=== PATIENT | male | born 1945 | race Caucasian/White ===

== ENCOUNTER → 2018-05-01 16:41 | Outpatient (CLI) | payer MEDICARE, SELFPAY ==
[2018-05-01 20:41] LABS: Cholesterol 135 mg/dL (140-199); HDL Cholesterol 30 mg/dL (40-60); LDL Cholesterol Calculated 65 mg/dL (<100); Triglycerides 201 mg/dL (35-150)
== END ==
PROVIDERS: Visit Provider Hospitalist
DX: I10 Essential (primary) hypertension (principal); I49.3 Ventricular premature depolarization
CPT/HCPCS: 36415; 80061

== ENCOUNTER 2020-01-05 15:45 | Emergency (ER) | payer MEDICARE, SELFPAY ==
[2020-01-05 15:56] VITALS: BP 155/88; PULSE 63; RESP 20; TEMP 36.6; O2SAT 95
--- NOTE | 2020-01-05 16:35 | ED_ITS ---
HPI - Extremity Problem <GALLITO Cornell - Last Filed: 01/05/20 18:10> General Chief complaint: Extremity Problem,Nontraumatic Stated complaint: right leg swelling below the knee Time Seen by Provider: 01/05/20 15:48 Source: patient Mode of arrival: Ambulatory Limitations: no limitations History of Present Illness HPI Narrative: The patient is a 74-year-old male nonsmoker with history of hypertension who presents with a chief complaint of a swollen right leg below his knee. He states he noticed it today, is not exactly sure how long it has been going on. States that he has some cramping, and a strained Achilles over the past few days. He has not taken anything for the pain. He denies any personal history of blood clots. Denies any recent surgeries, or flights. 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 He states that the longest he. Has immobile asa few hours he denies any chest pain shortness of breath. He denies any family history of blood clots. He denies any falls or trauma. Related Data Allergies Allergy/AdvReac Type Severity Reaction Status Date / Time No Known Drug Allergies Allergy Verified 01/05/20 15:58 Review of Systems <GALLITO Cornell - Last Filed: 01/05/20 18:10> Review of Systems Narrative: GENERAL: Denies chills, fatigue, malaise, fever, sweats. HEENT: Denies sinus pain, ear pain, sore throat, difficulty swallowing, dizziness. RESPIRATORY: Denies dyspnea, cough, wheezing, hemoptysis, sputum. CARDIOVASCULAR: Denies chest pain, palpitations, orthopnea, edema, GASTROINTESTINAL: Denies nausea, vomiting, abdominal pain, diarrhea, c onstipation, melena. : Denies dysuria, frequency, incontinence, hematuria, urinary retention. MUSCULOSKELETAL: See HPI SKIN: Denies rash, skin lesions, or other NEUROLOGIC: Denies weakness, headache, numbness, change in speech, confusion, seizures, incoordination. PSYCHIATRIC: No concerning psychosocial issues. 12 point review of systems is negative except for those stated above Patient History <GALLITO Cornell - Last Filed: 01/05/20 18:10> Social History Smoking Status: Never smoker Smoking Status: Never smoker alcohol intake frequency: 0-2 drinks per day Substance Use Type: does not use Exam <PERICO Cornell - Last Filed: 01/05/20 18:10> Narrative Exam Narrative: GENERAL: This is a well-nourished, well-developed patient, in no acute distress HEAD: Atraumatic. Normocephalic. No temporal or scalp tenderness. EYES: Pupils equal round and reactive. Extraocular motions intact. No scleral icterus. No injection or drainage. ENT: Nose without bleeding, purulent drainage or septal hematoma. Throat without erythema, tonsillar hypertrophy or exudate. Uvula midline. Airway patent. NECK: Trachea midline. No JVD or lymphadenopathy. Supple, nontender, no meningeal signs. CARDIOVASCULAR: Regular rate and rhythm RESPIRATORY: Clear to auscultation. Breath sounds equal bilaterally. No wheezes, rales, or rhonchi. No cough. No increased respiratory effort. No accessory muscle use. GASTROINTESTINAL: Abdomen soft, non-tender, nondistended. No hepato- splenomegaly, or palpable masses. No guarding. EXTREMITIES: +1 edema noted right lower leg. No edema noted left lower leg. No or erythema or ecchymosis noted. Positive pedal pulses bilaterally. BACK: Nontender without deformity or crepitance. No flank tenderness. NEURO: AOx3. SKIN: See extremity exam Initial Vital Signs Initial Vital Signs: Vital Signs Temperature 97.8 F 01/05/20 15:56 Pulse Rate 63 01/05/20 15:56 Respiratory Rate 20 01/05/20 15:56 Blood Pressure 155/88 H 01/05/20 15:56 Pulse Oximetry 95 01/05/20 15:56 <Cece Kearney DO - Last Filed: 01/05/20 18:17> Initial Vital Signs Initial Vital Signs: Vital Signs Temperature 97.8 F 01/05/20 15:56 Pulse Rate 63 01/05/20 15:56 Respiratory Rate 01/05/20 15:56 Blood Pressure 155/88 H 01/05/20 15:56 Pulse Oximetry 95 01/05/20 15:56 Scores <PERICO Cornell - Last Filed: 01/05/20 18:10> GCS Reina coma scale eye opening: Spontaneous [place] coma scale verbal response: Orientated [place] coma scale motor response: Obey commands [place] coma scale total score: 15 Course <PERICO Cornell - Last Filed: 01/05/20 18:10> Orders Ordered: ED Orders 01/05/20 17:20 US periph venous low extrem rt Stat Vital Signs Vital signs: Vital Signs - 8 hr 01/05/20 15:56 01/05/20 18:13 Temperature 97.8 F Pulse Rate 63 59 L Respiratory Rate 20 15 Blood Pressure 155/88 H 150/89 H Pulse Oximetry 95 96 <Cece Kearney DO - Last Filed: 01/05/20 18:17> Orders Ordered: ED Orders 01/05/20 17:20 US periph venous low extrem rt Stat Vital Signs Vital signs: Vital Signs - 8 hr 01/05/20 15:56 01/05/20 18:13 Temperature 97.8 F Pulse Rate 63 59 L Respiratory Rate 20 15 Blood Pressure 155/88 H 150/89 H Pulse Oximetry 95 96 MDM - Extremity (Nontraumatic) <PERICO Cornell - Last Filed: 01/05/20 18:10> Imaging Data US - DVT: Radiologist's Impression: [address] [place] [address] Ultrasound Report Signed Patient: [facility]#: [id number] : 1945cct:[id number] Age/Sex: 74 / MDate of Service: 01/05/20 Loc: ED Accession Number: [id number] Procedure: US periph venous low extrem rt Ordering Provider: Cece Fallon PROCEDURE: US PERIPH VENOUS LOW EXTREM RT INDICATIONS: PAIN,SWELLING TECHNIQUE: Real-time imaging, as well as color and pulse Doppler interrogation, were performed of the lower extremity deep veins from the inguinal ligament to the popliteal fossa. COMPARISON: None. FINDINGS: The common femoral, femoral and popliteal veins are normally compressible, and free of intraluminal thrombus. Color and pulse Doppler demonstrate normal phasic intraluminal flow. There is normal augmentation response to distal compression maneuver. An anechoic elongated structure is identified along the posterior aspect of the calf just above the level of the posterior margin of the ankle, which measures 1.9 x 4.3 x 1.1 cm. No internal vascularity is identified. Incidental note is made of a moderate-sized Vazquez's cyst within the popliteal fossa. IMPRESSION: 1. No evidence of a deep vein thrombosis of the right lower extremity. 2. Small fluid collection (likely representing hematoma) along the lower aspect of the posterior right lower leg may be related to recent injury. Please consider MRI for further evaluation to exclude the possibility of an injury to a muscle or tendon. 3. Vazquez's cyst. Dictated by: Yovani Parham M.D. on 01/05/2020 at 16:43 Approved by: Yovani Parham M.D. on 01/05/2020 at 16:[address] [facility] Narrative Medical decision making narrative: The patient is a 74-year-old male who presents with a chief complaint of right lower leg swelling. He has a have risk factors for DVT, so an ultrasound was obtained. This is negative for DVT, positive for Vazquez cyst and positive for a small fluid collection. This is likely attributed to his recent ?Achilles strain.However he has full range of motion noted of his right ankle and foot. I discussed at length rest ice compression elevation as well as [id number] pain medications as needed and able. I discussed coming back to ER for any acute concerns patient has no questions or concerns upon discharge and states understanding of return precautions as well as follow-up care. Discharge Plan Departure Patient Disposition: Home Clinical Impression: Leg pain, right Vazquez cyst Qualifiers: Laterality: right Qualified Code(s): M71.21 - Synovial cyst of popliteal space [Vazquez], right knee Discharge Date/Time: 01/05/20 18:15 Instructions: DI for Vazquez's Cyst, How To Perform RICE (Rest, Ice, Compress, Elevate), DI for Leg Pain Activity Restrictions/Additional Instructions: Thank you for trusting us with your care today. As I discussed, your ultrasound shows no evidence of a blood clot in your right lower leg. However you do have a Vazquez's cyst in her right leg. You also have a small fluid collection likely a hematoma on the back of her right leg. This could be related to your recent calf strain. Please use rest ice compression elevation as well as [id number] pain medications as needed and able I have given contact information [facility] human resource officer. They can help you obtain a primary care provider in the area.. Please come back to the emergency department for any acute concerns Referrals: [facility] [Outside]
--- NOTE | 2020-01-05 17:20 | DI.US.S_ITS ---
PROCEDURE: US PERIPH VENOUS LOW EXTREM RT INDICATIONS: PAIN,SWELLING TECHNIQUE: Real-time imaging, as well as color and pulse Doppler interrogation, were performed of the lower extremity deep veins from the inguinal ligament to the popliteal fossa. COMPARISON: None. FINDINGS: The common femoral, femoral and popliteal veins are normally compressible, and free of intraluminal thrombus. Color and pulse Doppler demonstrate normal phasic intraluminal flow. There is normal augmentation response to distal compression maneuver. An anechoic elongated structure is identified along the posterior aspect of the calf just above the level of the posterior margin of the ankle, which measures 1.9 x 4.3 x 1.1 cm. No internal vascularity is identified. Incidental note is made of a moderate-sized Vazquez's cyst within the popliteal fossa. IMPRESSION: 1. No evidence of a deep vein thrombosis of the right lower extremity. 2. Small fluid collection (likely representing hematoma) along the lower aspect of the posterior right lower leg may be related to recent injury. Please consider MRI for further evaluation to exclude the possibility of an injury to a muscle or tendon. 3. Vazquez's cyst. Dictated by: Yovani Parham M.D. on 01/05/2020 at 16:43 Approved by: Yovani Parham M.D. on 01/05/2020 at 16:44
[2020-01-05 18:13] VITALS: BP 150/89; PULSE 59; RESP 15; O2SAT 96
== END 2020-01-05 18:15 | disposition home or self-care (01) ==
PROVIDERS: Emergency Provider Nurse Practitioner Family
DX: M79.604 Pain in right leg (principal); M71.21 Synovial cyst of popliteal space [Baker], right knee; I10 Essential (primary) hypertension
CPT/HCPCS: 93971; 99281; 99283

== ENCOUNTER 2020-01-24 23:12 | Emergency (ER) | payer MEDICARE, SELFPAY ==
[2020-01-24 23:25] VITALS: BP 192/86; PULSE 59; RESP 16; TEMP 36.4; O2SAT 96; BMI 35.9
--- NOTE | 2020-01-25 00:14 | ED.MALEGU ---
HPI - Male Genitourinary General Chief complaint: Urogenital-Male Stated complaint: urinary problem, unable to urinate Time Seen by Provider: 01/24/20 23:15 Source: patient and family Mode of arrival: Ambulatory Limitations: no limitations History of Present Illness HPI Narrative: 74M nonsmoker with history of BPH presents with trouble using his catheter at home. He self caths 3-4x daily and has for years, usually without any trouble. He had done it multiple times earlier today without any difficulty but this evening felt some resistance and force the catheter in a bit. He felt some pain and then developed a small amount of bleeding and presented for evaluation. He denies any ongoing pain or bleeding. He has no fever chills. He denies any chest pain or shortness of breath. He denies nausea, vomiting or diarrhea MD Complaint: other Onset (ago): hour(s) Duration: now resolved Location: penis Quality: aching Relieving factors: none Context: trauma Associated symptoms: Reports denies other symptoms Related Data Allergies Allergy/AdvReac Type Severity Reaction Status Date / Time No Known Drug Allergies Allergy Verified 01/05/20 15:58 Review of Systems Constitutional Constitutional: Denies chills, Denies fatigue, Denies fever(s), Denies frequent falls, Denies lethargy and Denies weakness Eyes Eyes: Denies change in vision, Denies eye discharge, Denies irritation and Denies loss of vision ENT Ears, Nose, Mouth, and Throat: Denies change in voice, Denies dizziness, Denies neck pain, Denies sore throat and Denies throat swelling Cardiovascular Cardiovascular: Denies chest pain, Denies irregular heart rhythm, Denies lightheadedness, Denies palpitations, Denies dyspnea, Denies dyspnea on exertion and Denies orthopnea Respiratory Respiratory: Denies cough, Denies dyspnea, Denies dyspnea on exertion and Denies wheezing Gastrointestinal Gastrointestinal: Denies abdominal pain, Denies change in bowel habits, Denies diarrhea, Denies nausea and Denies vomiting Genitourinary Genitourinary: Denies hematuria, Denies flank pain, Denies urinary incontinence and Denies urinary urgency Comments: penile bleeding Musculoskeletal Musculoskeletal: Denies back pain, Denies muscle weakness, Denies neck pain, Denies numbness and Denies tingling Integumentary/Breasts Skin/Breast: Denies pruritus, Denies erythema, Denies rash and Denies wounds Neurologic Neurologic: Denies behavioral changes, Denies confusion, Denies dizziness, Denies frequent falls, Denies loss of vision, Denies numbness, Denies tingling and Denies weakness Psychiatric Psychiatric: Denies anxiety, Denies behavioral changes, Denies confusion, Denies depression, Denies homicidal ideation and Denies suicidal ideation Endocrine Endocrine: Denies fatigue, Denies flushing and Denies palpitations Hematologic/Lymphatic Hematologic/Lymphatic: Denies easy bruising Allergic/Immunologic Allergic/Immunologic: Denies urticaria, Denies throat swelling and Denies wheezing Patient History Social History Smoking Status: Never smoker Smoking Status: Never smoker alcohol intake frequency: 0-2 drinks per day Substance Use Type: does not use Exam Narrative Exam Narrative: GEN: AOx3 and in mild distress EYES: Pupils are equal, round, and reactive to light and accommodation. Extraoccular muscles are intact bilaterally. There is no subconjunctival hemorrhage or exudate. CHEST: Lungs are clear to auscultation bilaterally and free of wheezes, rales, or rhonchi. Heart rate is regular rhythm, there are no murmurs, clicks, rubs, or gallops. There is no chest wall tenderness. ABD: Abdomen is soft and nontender. There is no guarding or rebound. Bowel sounds are normal in all 4 quadrants. There is no mass or organomegaly. : dried blood at meatus. NO ongoing bleeding. No testicular pain or swelling. No penile pain. EXT: Full painless ROM of all extremities with no loss of sensation or strength. SKIN: Warm, pink, and dry. No erythema or rash Initial Vital Signs Initial Vital Signs: Vital Signs Temperature 97.6 F 01/24/20 23:25 Pulse Rate 59 L 01/24/20 23:25 Respiratory Rate 16 01/24/20 23:25 Blood Pressure 192/86 H 01/24/20 23:25 Pulse Oximetry 96 01/24/20 23:25 Course Course Course Narrative: patient has about 400mL on bladder scan. After my exam patient wishes to attempt catheter placement and does so without difficulty. He is given return precautions and has had questions answered to his apparent satisfaction Orders Ordered: Discontinued Medications Lidocaine HCl (Xylocaine Jelly 2%) 1 applic TOP NOW ONE Stop: 01/24/20 23:26 Last Admin: 01/25/20 00:30 Dose: Not Given Documented by: THERESA Vital Signs Vital signs: Vital Signs - 8 hr 01/24/20 23:25 01/25/20 00:28 Temperature 97.6 F Pulse Rate 59 L 80 Respiratory Rate 16 18 Blood Pressure 192/86 H 180/92 H Pulse Oximetry 96 98 Discharge Plan Departure Patient Disposition: Home Clinical Impression: Problem with urinary catheter Discharge Date/Time: 01/25/20 00:29 Instructions: How to Catheterize Yourself -- for Men Activity Restrictions/Additional Instructions: *You have been diagnosed with [catheter problem, resolved] *What to do: *Take medications as directed *Follow up with your primary care provider in 2-3 days, call for an appointment. Let them know you were seen in the Emergency Department and that we ask that you be seen in follow up *Return to ER if you should have any new, worsening or concerning symptoms
--- NOTE | 2020-01-25 00:16 | PC.NURSE ---
After DR exam,he was able to successfully self cath. as he normally does,clear yellow urine noted,no pain,no bleeding.
[2020-01-25 00:28] VITALS: BP 180/92; PULSE 80; RESP 18; O2SAT 98
== END 2020-01-25 00:29 | disposition home or self-care (01) ==
PROVIDERS: Emergency Provider Emergency Medicine
DX: T83.021A Displacement of indwelling urethral catheter, initial encounter (principal); N48.89 Other specified disorders of penis
CPT/HCPCS: 51798; 99282

== ENCOUNTER 2020-03-22 14:08 | Emergency (ER) | payer MEDICARE, SELFPAY ==
--- NOTE | 2020-03-22 14:20 | DI.RAD.S_ITS ---
PROCEDURE: XR SHOULDER LT MIN 2V INDICATIONS: Fall landing on shoulder with increased pain. TECHNIQUE: 3 views of the shoulder were acquired. COMPARISON: None. FINDINGS: Bones: No fractures or dislocations. No suspicious bony lesions. Glenohumeral joint and acromioclavicular joint degenerative change. Visualized ribs appear intact. Soft tissues: No suspicious soft tissue calcifications. IMPRESSION: Degenerative change. No evidence acute bony abnormality of the left shoulder. If clinical suspicion and/or symptoms persist, further assessment with repeat plain films, or advanced imaging (e.g., CT, MRI, or bone scan) may be helpful for further assessment. Dictated by: Mustapha Salinas M.D. on 03/22/2020 at 13:56 Approved by: Mustapha Salinas M.D. on 03/22/2020 at 13:57
[2020-03-22 14:21] VITALS: BP 171/87; PULSE 68; RESP 15; TEMP 36.8; O2SAT 97; BMI 35.9
--- NOTE | 2020-03-22 14:29 | PC.NURSE ---
pt has good radial pulse in left arm. good cap refill . denies any numbness or tingling in his fingers.
[2020-03-22] MEDS: IBUPROFEN 400 MG TABLET PO (15:48)
[2020-03-22] MEDS: ACETAMINOPHEN 325 MG TABLET 650 MG PO (15:48)
[2020-03-22] MEDS: LIDOCAINE PATCH 1 EACH ADH..PATCH TOP (15:49)
[2020-03-22 15:53] VITALS: BP 143/83; PULSE 58; RESP 18; O2SAT 98
--- NOTE | 2020-03-22 18:43 | ED.FALL ---
HPI - [facility] Last Filed: 03/22/20 18:51> General Chief Complaint: Fall Stated Complaint: Fell while rollerskating 03/21, hurt left shoulder Time Seen by Provider: 03/22/20 14:20 Source: patient Mode of arrival: Ambulatory Limitations: no limitations History of Present Illness HPI Narrative: The patient is a 74-year-old male nonsmoker with history of BPH who presents with a chief complaint of shoulder pain. He states that he fell while roller-skating yesterday, landed directly on to his left shoulder. His left shoulder was done aside he states he just landed on it. He states he did not have a FOOSH injury, did not twist his shoulder etcetera. He states he landed directly on his shoulder. He denies any previous known injuries. He states he has decreased range of motion. He took aspirin for the pain. He did not hit his head or his neck. He denies any other injuries. He states he is wearing helmet, knee guards, wrist guards etcetera. He states that he this is an isolated shoulder injury. Related Data Allergies Allergy/AdvReac Type Severity Reaction Status Date / Time No Known Drug Allergies Allergy Verified 01/05/20 15:58 Review of Systems <[facility] Last Filed: 03/22/20 18:51> Review of Systems Narrative: GENERAL: Denies chills, fatigue, malaise, fever, sweats. HEENT: Denies sinus pain, ear pain, sore throat, difficulty swallowing, dizziness. RESPIRATORY: Denies dyspnea, cough, wheezing, hemoptysis, sputum. CARDIOVASCULAR: Denies chest pain, palpitations, orthopnea, edema, GASTROINTESTINAL: Denies nausea, vomiting, abdominal pain, diarrhea, constipation, melena. : Denies dysuria, frequency, incontinence, hematuria, urinary retention. MUSCULOSKELETAL: See HPI SKIN: Denies rash, skin lesions, or other NEUROLOGIC: Denies weakness, headache, numbness, change in speech, confusion, seizures, incoordination. PSYCHIATRIC: No concerning psychosocial issues. 12 point review of systems is negative except for those stated above Patient History <[facility] Last Filed: 03/22/20 18:51> Social History Smoking Status: Never smoker Smoking Status: Never smoker alcohol intake frequency: 0-2 drinks per day Substance Use Type: does not use Exam <GALLTIO [facility] - Last Filed: 03/22/20 18:51> Narrative Exam Narrative: GENERAL: This is a well-nourished, well-developed patient, in no acute distress HEAD: Atraumatic. Normocephalic. No temporal or scalp tenderness. EYES: Pupils equal round and reactive. Extraocular motions intact. No scleral icterus. No injection or drainage. ENT: Nose without bleeding, purulent drainage or septal hematoma. Throat without erythema, tonsillar hypertrophy or exudate. Uvula midline. Airway patent. NECK: Trachea midline. No JVD or lymphadenopathy. Supple, nontender, no meningeal signs. CARDIOVASCULAR: Regular rate and rhythm without murmurs, gallops, or rubs. RESPIRATORY: Clear to auscultation. Breath sounds equal bilaterally. No wheezes, rales, or rhonchi. GASTROINTESTINAL: Abdomen soft, non-tender, nondistended. No hepato-splenomegaly, or palpable masses. No guarding. EXTREMITIES: Pain to palpation left shoulder on anterior side. Decreased range of motion all mariee, is able to flex shoulder to approximately 30?, is able to abduct shoulder, is able to abduct to approximately 30?. Reduced extension. Good chef passenger vessel strength left hand. Positive left radial pulse. Cap refill less than 2 seconds all fingers left hand. Is able to rotate shoulder BACK: Nontender without deformity or crepitance. No flank tenderness. No tenderness to here L-spine palpation NEURO: AOx3. SKIN: No rash or erythema on visible skin Initial Vital Signs Initial Vital Signs: Vital Signs Temperature 98.2 F 03/22/20 14:21 Pulse Rate 68 03/22/20 14:21 Respiratory Rate 15 03/22/20 14:21 Blood Pressure 171/87 H 03/22/20 14:21 Pulse Oximetry 97 03/22/20 14:21 <Jr Burgos MD - Last Filed: 03/23/20 19:46> Initial Vital Signs Initial Vital Signs: Vital Signs Temperature 98.2 F 03/22/20 14:21 Pulse Rate 68 03/22/20 14:21 Respiratory Rate 15 03/22/20 14:21 Blood Pressure 171/87 H 03/22/20 14:21 Pulse Oximetry 97 03/22/20 14:21 Scores <Cece PERICO Fallon - Last Filed: 03/22/20 18:51> GCS [place] coma scale eye opening: Spontaneous [place] coma scale verbal response: Orientated [place] coma scale motor response: Obey commands [place] coma scale total score: 15 Nexus Score for C-Spine Focal Neurologic deficit present: No Midline spinal tenderness present: No Altered level of conciousness present: No Intoxication present: No Distracting Injury Present: No Nexus Criteria for C-spine: 0 Course <PERICO Cornell - Last Filed: 03/22/20 18:51> Orders Ordered: Discontinued Medications Acetaminophen (Tylenol) 650 mg PO NOW ONE Stop: 03/22/20 15:43 Last Admin: 03/22/20 15:48 Dose: 650 mg Documented by: PAULO Ibuprofen (Advil) 400 mg PO NOW ONE Stop: 03/22/20 15:43 Last Admin: 03/22/20 15:48 Dose: 400 mg Documented by: PAULO Lidocaine (Lidoderm) 1 each TOP NOW ONE Stop: 03/22/20 15:43 Last Admin: 03/22/20 15:49 Dose: 1 each Documented by: PAULO Vital Signs Vital signs: Vital Signs - 8 hr 03/22/20 14:21 03/22/20 15:53 Temperature 98.2 F Pulse Rate 68 58 L Respiratory Rate 15 18 Blood Pressure 171/87 H 143/83 H Pulse Oximetry 97 98 <Jr Burgos MD - Last Filed: 03/23/20 19:46> Orders Ordered: Discontinued Medications Acetaminophen (Tylenol) 650 mg PO NOW ONE Stop: 03/22/20 15:43 Last Admin: 03/22/20 15:48 Dose: 650 mg Documented by: PAULO Ibuprofen (Advil) 400 mg PO NOW ONE Stop: 03/22/20 15:43 Last Admin: 03/22/20 15:48 Dose: 400 mg Documented by: PAULO Lidocaine (Lidoderm) 1 each TOP NOW ONE Stop: 03/22/20 15:43 Last Admin: 03/22/20 15:49 Dose: 1 each Documented by: PAULO Vital Signs Vital signs: Vital Signs - 8 hr 03/22/20 14:21 03/22/20 15:53 Temperature 98.2 F Pulse Rate 68 58 L Respiratory Rate 15 18 Blood Pressure 171/87 H 143/83 H Pulse Oximetry 97 98 MDM - Fall <PERICO Cornell - Last Filed: 03/22/20 18:51> Imaging Data Extremity x-ray #1: Radiologist's Impression: [address] [place] [id number] XRay Report Signed Patient: Isai Mcneil [facility]#: [id number] : 7Acct:[id number] Age/Sex: 74 / MDate of Service: 03/22/20 Loc: ED Accession Number: [id number] Procedure: XR shoulder LT min 2V Ordering Provider: Cece Fallon PROCEDURE: XR SHOULDER LT MIN 2V INDICATIONS: Fall landing on shoulder with increased pain. TECHNIQUE: 3 views of the shoulder were acquired. COMPARISON: None. FINDINGS: Bones: No fractures or dislocations. No suspicious bony lesions. Glenohumeral joint and acromioclavicular joint degenerative change. Visualized ribs appear intact. Soft tissues: No suspicious soft tissue calcifications. IMPRESSION: Degenerative change. No evidence acute bony abnormality of the left shoulder. If clinical suspicion and/or symptoms persist, further assessment with repeat plain films, or advanced imaging (e.g., CT, MRI, or bone scan) may be helpful for further assessment. Dictated by: Mustapha Salinas M.D. on 03/22/2020 at 13:56 Approved by: Mustapha Salinas M.D. on 03/22/2020 at 13:57 [facility] Narrative Medical decision making narrative: The patient is a 74-year-old male who presents with a chief complaint of left-sided shoulder pain after a fall while rollerblading. X-ray is no acute findings, no fractures or dislocations stated the patient is neurovascularly intact her stay in the emergency department. Given his decreased range of motion, I am concerned about a soft tissue injury which I discussed with the patient. I discussed at length the need to follow up with primary care provider he may benefit from further imaging and or physical therapy. The patient did drive to the emergency department today, decreasing ability to give him pain medications. Furthermore he declines pain medications on discharge. I discussed at length coming back to the emergency department for any acute concerns and following up with primary care provider. Patient has no questions or concerns upon discharge and states understanding of return precautions as well as follow-up care. Discharge Plan Departure Patient Disposition: Home Clinical Impression: Acute shoulder pain Qualifiers: Laterality: left Qualified Code(s): M25.512 - Pain in left shoulder Fall from roller skates Qualifiers: Encounter type: initial encounter Qualified Code(s): V00.121A - Fall from non-in-line roller-skates, initial encounter Discharge Date/Time: 03/22/20 16:22 Instructions: How To Perform RICE (Rest, Ice, Compress, Elevate), DI for Shoulder Pain Activity Restrictions/Additional Instructions: Thank you for trusting us with your care today As I discussed, your x-ray shows no acute fracture. This does not rule out a soft tissue injury such as a ligament or tendon injury. It is important that you follow up with primary care provider, especially if worsening or no improvement. There can be fractures that did not show up on initial x-ray. As I discussed, please follow-up with primary care provider. I have given you contact information [facility] health human resources department supervisor. You may need further imaging and/or physical therapy. In the meantime please use [id number] medications as needed and able as well as rest and ice. Please come back to the emergency department for any acute concerns Referrals: [facility] [Outside]
== END 2020-03-22 16:22 | disposition home or self-care (01) ==
PROVIDERS: Emergency Provider Nurse Practitioner Family
DX: M25.512 Pain in left shoulder (principal); V00.121A Fall from non-in-line roller-skates, initial encounter
CPT/HCPCS: 73030; 99283

== ENCOUNTER 2021-05-09 01:13 | Inpatient (IN) | payer MEDICARE, SELFPAY ==
[2021-05-09] VITALS (29 sets, daily range): BP systolic 128–186; BP diastolic 85–126; PULSE 86–129; RESP 16–34; TEMP 36.3–37.1; O2SAT 91–95; BMI 33.9
--- NOTE | 2021-05-09 | DI.ECHO.S_ITS ---
[facility]---------+ [facility] +---------+ : : [address] : : : : [id number] : : : : Phone: [phone]+ Echocardiogram Report + + :Name: EJ AUGUST Study Date: 05/09/2021 Height: 72 in : :[facility] ReadingLocation: Weight: 250 lb : : Gender: Male BSA: 2.3 m2 : :: 1945 Age: 75 yrs BP: 152/86 mmHg: :Reason For Study: Dyspnea, Afib RVR : :Ordering Physician: Purnima : :Hospitalist Performed By: Sultana Peoples : :Referring: RAFAEL HOLLY : + + Interpretation Summary 1) Normal left ventricular size with severely reduced systolc function (EF 25- 30%). 2) The right ventricle is mildly dilated and has normal function. 3) There is moderate biatrial enlargement. A patent foramen ovale is suspected. 4) There is mild mitral regurgitation, directed posteriorly. There is mild aortic regurgitation. 5) The ascending aorta is mildly enlarged at 4.1cm. 6) Atrial fibrillation with ventricular rates 100s-120s range. 7) No prior Echo available for comparison. Procedure: A two-dimensional transthoracic echocardiogram with color flow and Doppler was performed. The study quality was technically adequate. There is no prior echocardiogram noted for this patient. The patient was in atrial fibrillation with heart rates between 85-137 bpm during the exam. Left Ventricle: The left ventricle is normal in size. Left ventricular wall thickness is at the upper limits of normal. There is no ventricular septal defect visualized. There is no thrombus. The ejection fraction is estimated to be 25-30%. There is severe global hypokinesis of the left ventricle. Diastolic function could not be accurately assessed due to atrial fibrillation. Right Ventricle: The right ventricle is mildly dilated. The right ventricular systolic function is normal. Atria: There is moderate biatrial enlargement. A patent foramen ovale is suspected. Mitral Valve: The mitral regurgitant jet is eccentrically directed. There is mild mitral regurgitation. Aortic Valve: The aortic valve is trileaflet. The aortic valve opens well. The aortic valve is mildly calcified. There is no aortic valve stenosis. There is mild aortic regurgitation. Tricuspid Valve: The tricuspid valve is normal in structure and function. There is mild tricuspid regurgitation. The right ventricular systolic pressure is estimated to be at least 34 mmHg based on an estimated right atrial pressure of 8 mm Hg. Pulmonic Valve: The pulmonic valve is not well seen, but is grossly normal. There is a trace or physiologic amount of pulmonic regurgitation. Great Vessels: The aortic root is normal size. The ascending aorta is mildly enlarged. The aortic arch could not be visualized. The IVC is dilated (diameter is greater than 2.1 cm) yet it collapses greater than 50% with a sniff. This suggests a right atrial pressure of 8 mm Hg. Pericardium/ Pleura There is no pericardial effusion. MMode/2D Measurements & Calculations LVIDd: 4.9 cm LVOT diam: 2.1 cm LVIDs: 4.0 cm Ao root diam: 3.9 cm FS: 18.3 % asc Aorta Diam: 4.1 cm EPSS: 0.65 cm IVSd: 0.98 cm LVPWd: 1.2 cm LV jiang. diameter/BSA (cm/m^2): 2.1 LV sys. diameter/BSA (cm/m^2): 1.7 LA A2 area: 28.4 cm2 RA long axis: 6.7 cm LA A4 area: 27.0 cm2 RA area: 27.2 cm2 LA length (vol): 6.6 cm RA vol: 93.8 ml LA vol: 97.9 ml RA : 40.0 ml/m2 LA vol index: 41.8 ml/m2 IVC diam: 2.8 cm RVD1 (basal): 4.2 cm TAPSE: 2.2 cm Doppler Measurements & Calculations Ao V2 max: 112.8 cm/sec LVOT Max Andres: 85.8 cm/sec Ao V2 mean: 82.3 cm/sec LV V1 max P.0 mmHg Ao max P.2 mmHg LV V1 VTI: 15.3 cm Ao mean P.0 mmHg RUPERT(I,D): 3.0 cm2 Ao V2 VTI: 17.5 cm URPERT(V,D): 2.6 cm2 sev ratio: 0.88 RUPERT indexed to BSA (cm^2/m^2): 1.3 Med Peak E' Andres: 4.7 cm/sec TR max andres: 250.4 cm/sec Lat Peak E' Andres: 8.1 cm/sec TR max P.5 mmHg MVA(VTI): 4.2 cm2 PA V2 max: 88.5 cm/sec MR ERO: 0.06 cm2 PA V2 mean: 63.4 cm/sec PA mean P.8 mmHg PA pr(Accel): 52.5 mmHg MV V2 mean: 59.6 cm/sec MR PISA: 0.95 cm2 MV mean P.7 mmHg MR flow rate: 32.7 cm3/sec MV V2 VTI: 12.4 cm MR PISA radius: 0.39 cm SV(LVOT): 51.7 ml Reading Physician:03:05 PM
--- NOTE | 2021-05-09 | DI.NM.S_ITS ---
PROCEDURE: NM RONEN PERF SPECT REST & STR Rest and exercise myocardial perfusion SPECT with gated imaging and ejection fraction RADIOPHARMACEUTICAL: 11.1 mCi Tc-99m sestamibi IV at rest and 26.7 mCi Tc-99m sestamibi IV at peak exercise. A [id number] was performed. INDICATIONS: Chest pain, new onset atrial fibrillation TECHNIQUE: Radiopharmaceutical was injected at peak stress test, and also at rest. SPECT images were obtained. SPECT myocardial perfusion images were displayed in short axis, horizontal long axis, and vertical long axis views. Gated images were reviewed using SpongeFish software. COMPARISON: None. CARDIAC STRESS: A standard Charles treadmill exercise tolerance test was performed by the patient under the supervision of an attending staff. The patient exercised for 4 minutes and 4 seconds; functional aerobic impairment (IKER) is +30 %; 4.9 METS (metabolic equivalent). Hemodynamic data: There is normal blood pressure and heart rate response to exercise stress. Patient achieved 109 of maximum predicted heart rate at peak exercise. Symptoms: Patient denied chest pain during exercise. EKG: No diagnostic EKG changes of ischemia; no ectopy. FINDINGS: Raw data: There is good myocardial labeling by radiotracer. No significant motion artifacts. Left ventricle function: Gated images demonstrate global decrease in left ventricle wall thickening. No segmental wall motion abnormality. No transient ischemic dilation; TID is 0.84 (normal less than 1.3). The left ventricle resting end-diastolic volume is 151 mL. Left ventricle stress ejection fraction is 37%; normal values are above 45%. Myocardial perfusion: There is normal distribution of activity in the left and right ventricular myocardium. No fixed or reversible perfusion defects. IMPRESSION: No evidence of exercise induced ischemia or scar. Dilated left ventricle with globally reduced systolic function. Limited exercise capacity. Dictated by: Gabi Durham D.O. on 05/11/2021 at 13:27 Approved by: Gabi Durham M.D. on 05/11/2021 at 13:38
--- NOTE | 2021-05-09 01:25 | DI.RAD.S_ITS ---
PROCEDURE: XR CHEST 1V INDICATIONS: chest pain TECHNIQUE: One view of the chest was acquired. COMPARISON: None. FINDINGS: Surgical changes and devices: None. Lungs and pleura: Mild generalized interstitial prominence can be seen. No large pleural effusions or pneumothorax. Mediastinum: Mediastinal contours appear normal. Heart size is mildly enlarged. Bones and chest wall: No suspicious bony lesions. Age-appropriate bony degenerative changes are seen. Overlying soft tissues appear unremarkable. IMPRESSION: Cardiomegaly and interstitial prominence. CHF is suspected. Note: No significant discrepancy from the preliminary report. Dictated by: Rob Shahid M.D. on 05/09/2021 at 8:03 Approved by: Rob Shahid M.D. on 05/09/2021 at 8:03
[2021-05-09 01:40] LABS: Alanine Aminotransferase 67 IU/L (<50); Albumin 3.7 g/dL (3.5-5.0); Albumin Globulin Ratio 1.2 (1.0-2.8); Alkaline Phosphatase 88 U/L (38-126); Aspartate Aminotransferase 58 IU/L (17-59); BUN Creatinine Ratio 23.6 (6-22); Bilirubin Total 0.7 mg/dL (0.2-1.3); Blood Urea Nitrogen 26 mg/dL (9-20); Calcium 8.7 mg/dL (8.4-10.2); Carbon Dioxide 27 mmol/L (22-32); Chloride 109 mmol/L (98-107); Creatine Kinase 77 U/L (55-170); Estimated Glomerular Filt Rate > 60.0 mL/min (>60); Glucose 109 mg/dL (80-110); HEMOLYSIS 44 (0-50); Lipase 79 U/L (23-300); Potassium 4.4 mmol/L (3.4-5.1); Sodium 141 mmol/L (137-145); Total Protein 6.7 g/dL (6.3-8.2)
[2021-05-09] MEDS: METOPROLOL TARTRATE 5 MG/5 ML INJ IV (01:43)
--- NOTE | 2021-05-09 01:49 | ED_ITS ---
HPI - Chest Pain General Chief Complaint: Chest Pain Stated Complaint: trouble breathing x7 days Time Seen by Provider: 05/09/21 01:34 Source: patient Mode of arrival: Ambulatory History of Present Illness HPI narrative: Patient is a 75-year-old male who presents with 1 week of difficulty breathing and chest congestion. He states it sort of feels like when he had pneumonia. He has not had fever or cough. Tonight he was unable to sleep because he had a hard time breathing. He has noticed swelling in his lower extremities as well. He says he has significant time with minimal exertion. He is noted to be in atrial fibrillation with a heart rate in the 120s. He says he does have a history of atrial fibrillation, says he has been in it his whole life and takes a blood pressure medication for it. 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 Related Data Home Medications Medication Instructions Recorded Confirmed amlodipine 10 mg-benazepril 40 mg 1 cap PO DAILY 08/04/20 08/04/20 capsule turmeric root extract 500 mg 500 mg PO BID 08/04/20 08/04/20 capsule Allergies Allergy/AdvReac Type Severity Reaction Status Date / Time No Known Drug Allergies Allergy Verified 08/04/20 14:25 Review of Systems Review of Systems Narrative: GENERAL: Denies chills, fatigue, malaise, fever, sweats, travel HEENT: Denies sinus pain, ear pain, sore throat, difficulty swallowing, neck pain RESPIRATORY: See HPI CARDIOVASCULAR: See HPI GASTROINTESTINAL: Denies nausea, vomiting, abdominal pain, diarrhea, constipation, melena. : Denies dysuria, frequency, incontinence, hematuria, urinary retention, flank pain. MUSCULOSKELETAL: Denies weakness, joint pain, or bony pain SKIN: No rash, no erythema, no pruritus NEUROLOGIC: Denies weakness, dizziness, headache, numbness, change in speech, confusion PSYCHIATRIC: No concerning psychosocial issues. 12 point review of systems is negative except for those stated above and HPI Patient History Medical History (Updated 05/09/21 @ 03:45 by Teodora Oliver DO) Arthritis Flaccid bladder HTN (hypertension) Urinary retention Surgical History H/O hernia repair Hx of transurethral resection of prostate Family History Brother Diabetes mellitus Social History marital status: number of children: 9 Smoking Status: Never smoker alcohol intake: never Smoking Status: Never smoker alcohol intake frequency: 0-2 drinks per day Substance Use Type: does not use Exam Initial Vital Signs Initial Vital Signs: Vital Signs Pulse Rate 108 H 05/09/21 01:26 Respiratory Rate 24 05/09/21 01:26 Blood Pressure 186/118 H 05/09/21 01:26 Pulse Oximetry 94 05/09/21 01:26 GENERAL: Alert 75-year-old male and in no acute distress. HEENT: Head atraumatic,EOMI, pupils reactive, face symmetric, moist mucous membranes CARDIOVASCULAR: irregularly irregular RESPIRATORY: Crackles at bases conversational dyspnea ABDOMEN: Soft, nontender. Normoactive bowel sounds all 4 quadrants. No guarding or rebound. EXTREMITIES: Normal range of motion, no clubbing. Bilateral +2 pitting edema NEUROLOGICAL: Alert and oriented x4.Normal gait and speech. SKIN: Warm, dry, no laceration, no petechiae, no rashes or lesions. Course Orders Ordered: ED Orders 05/09/21 01:23 Complete Blood Count AUTO DIFF Stat Comprehensive Metabolic Panel Stat Lipase Stat NT-proBNP (BNP-Adult 18+) Stat Troponin & CK Cardiac Panel Stat 05/09/21 01:25 XR chest 1V Stat EKG-12 Lead Stat 05/09/21 01:45 COVID19 -Nasal swab/Pre-Proc Stat Discontinued Medications Furosemide (Furosemide 40 Mg/4 Ml Vial) 40 mg IV NOW ONE Stop: 05/09/21 02:02 Last Admin: 05/09/21 02:05 Dose: 40 mg Documented by: TIM Metoprolol Tartrate (Metoprolol Tartrate 5 Mg/5 Ml Inj) 5 mg IV NOW ONE Stop: 05/09/21 01:40 Last Admin: 05/09/21 01:43 Dose: 5 mg Documented by: HALEY Vital Signs Vital signs: Vital Signs - 8 hr 05/09/21 01:26 05/09/21 01:32 05/09/21 01:50 Temperature 98.7 F Pulse Rate 108 H 129 H 100 H Respiratory Rate 24 26 H 25 H Blood Pressure 186/118 H 185/120 H 171/108 H Pulse Oximetry 94 95 94 05/09/21 01:55 05/09/21 02:00 05/09/21 02:06 Temperature Pulse Rate 102 H 102 H 99 H Respiratory Rate 23 17 25 H Blood Pressure 163/96 H 161/101 H 162/124 H Pulse Oximetry 93 93 94 05/09/21 02:10 05/09/21 02:15 05/09/21 02:20 Temperature Pulse Rate 97 H 118 H 120 H Respiratory Rate 22 28 H 22 Blood Pressure 162/126 H 180/126 H 174/110 H Pulse Oximetry 93 92 93 05/09/21 02:25 05/09/21 02:30 05/09/21 02:35 Temperature Pulse Rate 114 H 112 H 117 H Respiratory Rate 23 24 34 H Blood Pressure 162/113 H 156/124 H 150/114 H Pulse Oximetry 91 91 92 05/09/21 02:40 05/09/21 02:45 Temperature Pulse Rate 100 H 98 H Respiratory Rate 27 H 25 H Blood Pressure 165/99 H 128/90 Pulse Oximetry 91 91 MDM - Chest Pain Lab Data Result diagrams: 05/09/21 01:23 05/09/21 01:23 Labs: Lab Results 05/09/21 05/09/21 05/09/21 Range/Units 01:23 01:23 01:23 WBC 8.2 (4.5-11.0) X10^3/uL RBC 5.15 (4.5-5.9) X10^6/uL Hgb 15.3 (13.5-17.5) g/dL Hct 46.6 (41-53) % MCV 90.4 (80-100) fL MCH 29.7 (26-34) PG MCHC 32.9 (30-36) % RDW 15.2 H (11.6-14.8) % Plt Count 169 (150-400) X10^3/uL Neut % (Auto) 66.0 (50-75) % Lymph % (Auto) 21.5 L (25-40) % [place] % (Auto) 10.3 (3-14) % Eos % (Auto) 1.2 L (2-4) % Baso % (Auto) 1.0 (0-2) % Neut # (Auto) 5400 (5088-8081) /uL Lymph # (Auto) 1800 (9316-4132) /uL [place] # (Auto) 900 (0-900) /uL Eos # (Auto) 100 (0-450) /uL Baso # (Auto) 100 (0-100) /uL Sodium 141 (137-145) mmol/L Potassium 4.4 (3.4-5.1) mmol/L Chloride 109 H (98-107) mmol/L Carbon Dioxide 27 (22-32) mmol/L BUN 26 H (9-20) mg/dL Creatinine 1.10 (0.66-1.25) mg/dL Estimated GFR > 60.0 (>60) mL/min BUN/Creatinine Ratio 23.6 H (6-22) Glucose 109 (80-110) mg/dL Calcium 8.7 (8.4-10.2) mg/dL Total Bilirubin 0.7 (0.2-1.3) mg/dL AST 58 (17-59) IU/L ALT 67 H (<50) IU/L Alkaline Phosphatase 88 (38-126) U/L Total Creatine Kinase 77 (55-170) U/L CK-MB (CK-2) TNP CK-MB (CK-2) Rel Index TNP Troponin I < 0.012 (0.01-0.034) ng/mL NT-Pro-B Natriuret Pep 2730 H (<125) pg/mL Total Protein 6.7 (6.3-8.2) g/dL Albumin 3.7 (3.5-5.0) g/dL Globulin 3.0 (1.7-4.1) g/dL Albumin/Globulin Ratio 1.2 (1.0-2.8) Lipase 79 (23-300) U/L SARS-CoV-2 (PCR) (Negative) 05/09/21 Range/Units 01:45 WBC (4.5-11.0) X10^3/uL RBC (4.5-5.9) X10^6/uL Hgb (13.5-17.5) g/dL Hct (41-53) % MCV (80-100) fL MCH (26-34) PG MCHC (30-36) % RDW (11.6-14.8) % Plt Count (150-400) X10^3/uL Neut % (Auto) (50-75) % Lymph % (Auto) (25-40) % [place] % (Auto) (3-14) % Eos % (Auto) (2-4) % Baso % (Auto) (0-2) % Neut # (Auto) (7788-4795) /uL Lymph # (Auto) (4179-5455) /uL [place] # (Auto) (0-900) /uL Eos # (Auto) (0-450) /uL Baso # (Auto) (0-100) /uL Sodium (137-145) mmol/L Potassium (3.4-5.1) mmol/L Chloride (98-107) mmol/L Carbon Dioxide (22-32) mmol/L BUN (9-20) mg/dL Creatinine (0.66-1.25) mg/dL Estimated GFR (>60) mL/min BUN/Creatinine Ratio (6-22) Glucose (80-110) mg/dL Calcium (8.4-10.2) mg/dL Total Bilirubin (0.2-1.3) mg/dL AST (17-59) IU/L ALT (<50) IU/L Alkaline Phosphatase (38-126) U/L Total Creatine Kinase (55-170) U/L CK-MB (CK-2) CK-MB (CK-2) Rel Index Troponin I (0.01-0.034) ng/mL NT-Pro-B Natriuret Pep (<125) pg/mL Total Protein (6.3-8.2) g/dL Albumin (3.5-5.0) g/dL Globulin (1.7-4.1) g/dL Albumin/Globulin Ratio (1.0-2.8) Lipase (23-300) U/L SARS-CoV-2 (PCR) Negative (Negative) Imaging Data Chest x-ray: Radiologist's Impression: Preliminary report Cardiomegaly without passive venous congestion. Poor inspiratory effort with subsegmental dependent atelectasis no airspace disease no pleural effusions. ECG Data Interpretation: Atrial fibrillation rate 125 is incomplete right bundle-branch, EKG appears earlier today and sinus rhythm MDM Narrative Medical decision making narrative: Patient have it has been having increasing shortness of breath and chest discomfort ongoing for 1 week. He is currently in AFib with RVR. I am Not convinced he does have history of atrial fibrillation. We have limited records here at this hospital no notes indicate he has atrial fibrillation and current medication does not support diagnosis of atrial fibrillation. Patient self catheterizes 4 times a day for neurogenic bladder and cannot tell when he must urinate. I have suggested a Moser catheter with Lasix, he is reluctantly agreeable to the Moser catheter. He is not significantly hypoxic but does have conversational dyspnea and obvious water retention. Heart rate improved with 1 dose of Lopressor into the 90s to low 100s. Pain and discomfort also went away. Patient has new onset atrial fibrillation with probable new CHF. Is not on go home with a Moser catheter but probably needs 1 for diuresis. He is agreeable to observation THI Meadows in ED to see and evaluate patient except observation Discharge Plan Departure Patient Disposition: Admitted as Observation Clinical Impression: Atrial fibrillation with rapid ventricular response, Congestive heart failure Admit Date/Time: 05/09/21 02:45 Admit Provider: Radha Meadows
[2021-05-09 01:51] LABS: Add Manual Diff / Slide Review NO; Basophils Absolute Auto 100 /uL (0-100); Eosinophils Absolute Auto 100 /uL (0-450); Eosinophils Percent Auto 1.2 % (2-4); Hematocrit 46.6 % (41-53); Hemoglobin 15.3 g/dL (13.5-17.5); Lymphocytes Absolute Auto 1800 /uL (1100-4500); Lymphocytes Percent Auto 21.5 % (25-40); Mean Corpuscular HGB Conc 32.9 % (30-36); Mean Corpuscular Hemoglobin 29.7 PG (26-34); Mean Corpuscular Volume 90.4 fL (80-100); Monocytes Absolute Auto 900 /uL (0-900); Monocytes Percent Auto 10.3 % (3-14); Neutrophils Absolute Auto 5400 /uL (1500-7000); Platelet Count 169 X10^3/uL (150-400); Red Blood Cell Count 5.15 X10^6/uL (4.5-5.9); Red Cell Distribution Width 15.2 % (11.6-14.8); White Blood Cell Count 8.2 X10^3/uL (4.5-11.0)
[2021-05-09 01:52] LABS: Troponin I < 0.012 ng/mL (0.01-0.034)
[2021-05-09 01:58] LABS: NT-proBNP (BNP-Adult 18+) 2730 pg/mL (<125)
[2021-05-09 02:05] LABS: COVID19 -Nasal RAPID Negative (Negative)
[2021-05-09] MEDS: FUROSEMIDE 40 MG/4 ML VIAL IV (02:05)
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
[2021-05-09 04:10] LABS: Hemoglobin A1C% w Est Avg Glu 5.3 % (4.0-6.0)
[2021-05-09 05:12] LABS: Add Manual Diff / Slide Review NO; Basophils Absolute Auto 0 /uL (0-100); Basophils Percent Auto 0.2 % (0-2); Eosinophils Absolute Auto 100 /uL (0-450); Eosinophils Percent Auto 0.8 % (2-4); Hematocrit 44.6 % (41-53); Hemoglobin 14.9 g/dL (13.5-17.5); Lymphocytes Absolute Auto 1100 /uL (1100-4500); Lymphocytes Percent Auto 14.6 % (25-40); Mean Corpuscular HGB Conc 33.5 % (30-36); Mean Corpuscular Volume 89.5 fL (80-100); Monocytes Absolute Auto 700 /uL (0-900); Monocytes Percent Auto 9.1 % (3-14); Neutrophils Absolute Auto 5700 /uL (1500-7000); Neutrophils Percent Auto 75.3 % (50-75); Platelet Count 160 X10^3/uL (150-400); Red Blood Cell Count 4.98 X10^6/uL (4.5-5.9); Red Cell Distribution Width 15.3 % (11.6-14.8); White Blood Cell Count 7.5 X10^3/uL (4.5-11.0)
[2021-05-09] MEDS: dilTIAZem 5 MG/ML SDV 10 MG IV (05:22)
[2021-05-09 05:25] LABS: BUN Creatinine Ratio 23.8 (6-22); Blood Urea Nitrogen 25 mg/dL (9-20); Calcium 8.8 mg/dL (8.4-10.2); Carbon Dioxide 29 mmol/L (22-32); Chloride 107 mmol/L (98-107); Cholesterol 94 mg/dL (140-199); Estimated Glomerular Filt Rate > 60.0 mL/min (>60); Glucose 101 mg/dL (80-110); HDL Cholesterol 23 mg/dL (40-60); HEMOLYSIS < 15 (0-50); LDL Cholesterol Calculated 56 mg/dL (<100); Potassium 3.7 mmol/L (3.4-5.1); Sodium 141 mmol/L (137-145); Triglycerides 75 mg/dL (35-150)
[2021-05-09 05:55] LABS: Cortisol AM (Before 10AM) 9.43 ug/dL (4.46-22.7)
[2021-05-09 05:56] LABS: Thyroid Stimulating Hormone 2.52 uIU/mL (0.47-4.68)
[2021-05-09] MEDS: LOSARTAN 50 MG TABLET 100 MG PO (08:16)
[2021-05-09] MEDS: DOCUSATE 100 MG CAPSULE PO ×2 (08:16→20:51)
[2021-05-09] MEDS: APIXABAN 5 MG TABLET PO ×2 (08:16→20:51)
[2021-05-09] MEDS: POTASSIUM CHLORIDE 20 MEQ TAB 40 MEQ PO (08:16)
[2021-05-09] MEDS: AMLODIPINE 5 MG TABLET 10 MG PO (08:16)
[2021-05-09] MEDS: carvediloL 3.125 MG TABLET 6.25 MG PO (08:17)
[2021-05-09 08:24] LABS: Troponin I < 0.012 ng/mL (0.01-0.034)
--- NOTE | 2021-05-09 09:25 | CM.DANOTE ---
Patient is a 75 yo male who was admitted on 05/09/21 for SOB x7 days. Pt has MCR and A[employer] for insurance and his PCP is not listed. EMR was reviewed. Per MD, pt with new CHF exacerbation and Echo ordered and pending. Pt has no other hx of admissions to [facility]. 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 They are trying to find another rental but have been having difficulty finding availability and affordability for a rental. 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 Pt denies any hx of HH or SNF and denies any DPOA pwk completed and declines pwk at this time. Spouse anticipates transporting pt home at d/c and they are a little anxious for Echo results to determine medical needs. Plan: SW to follow closely for Echo results and any further identified discharge planning needs. PILAR Martinez Discharge Planning/Care Management Advanced directive, confirm from FAMILY Start: 05/09/21 04:00 Freq: Q24H Status: Active Protocol: Document 05/09/21 04:00 MW (Rec: 05/09/21 06:15 MW [id number]) Advance Directive, confirm on record Time 03:30 Person contacted pt Copy received No CM Discharge Assessment Start: 05/09/21 09:23 Freq: Status: Active Protocol: Document 05/09/21 09:23 BF (Rec: 05/09/21 09:25 BF [id number]) Discharge Planning Assessment Assigned [employer] PILAR Adams DPOA/Assigned Designee Name none, informally spouse Bertrand Advance Directives? No Advance Directives on File No History Provided By Patient,Significant Other, Medical Record Has Patient been admitted in last 30 No days? 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 # of [employer] Review Status In Process Please Provide Date Initial DC 05/09/21 Assessment Was Performed Next Review Type Continued Stay Review
--- NOTE | 2021-05-09 15:37 | PC.NURSE ---
Day shift note: No c/o chest pain or SOB this shift, 95% on RA. OUtput 1550ml, intake 270ml
[2021-05-09] MEDS: carvediloL 3.125 MG TABLET 12.5 MG PO (20:51)
--- NOTE | 2021-05-09 22:53 | PC.NURSE ---
removed madsen at 1800. ok for pt to self cath per provider. pt has his own supplies.
[2021-05-10 04:10] VITALS: BP 141/105; PULSE 99; RESP 18; TEMP 36.7; O2SAT 94
[2021-05-10 05:35] LABS: BUN Creatinine Ratio 23.1 (6-22); Blood Urea Nitrogen 24 mg/dL (9-20); Calcium 8.5 mg/dL (8.4-10.2); Carbon Dioxide 28 mmol/L (22-32); Chloride 107 mmol/L (98-107); Estimated Glomerular Filt Rate > 60.0 mL/min (>60); Glucose 106 mg/dL (80-110); Potassium 4.4 mmol/L (3.4-5.1); Sodium 140 mmol/L (137-145)
[2021-05-10 05:37] LABS: HEMOLYSIS 99 (0-50)
[2021-05-10 08:00] VITALS: BP 148/99; PULSE 103; RESP 22; TEMP 37.4; O2SAT 99
[2021-05-10] MEDS: POTASSIUM CHLORIDE 20 MEQ TAB PO (09:39)
[2021-05-10 09:40] VITALS: BP 143/99; PULSE 103
[2021-05-10] MEDS: AMLODIPINE 5 MG TABLET 10 MG PO (09:40)
[2021-05-10] MEDS: DOCUSATE 100 MG CAPSULE PO (09:40)
[2021-05-10] MEDS: APIXABAN 5 MG TABLET PO (09:40)
[2021-05-10] MEDS: FUROSEMIDE 40 MG TABLET PO (09:40)
[2021-05-10] MEDS: LOSARTAN 50 MG TABLET 100 MG PO (09:40)
[2021-05-10 13:00] VITALS: BP 144/88; PULSE 90; RESP 18; TEMP 37.2; O2SAT 99
[2021-05-10 15:40] VITALS: BP 134/91; PULSE 72; RESP 17; TEMP 36.6; O2SAT 94
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
[2021-05-10] MEDS: carvediloL 3.125 MG TABLET 6.25 MG PO (17:30)
== END 2021-05-10 17:59 | disposition home or self-care (01) | DRG 291 ==
LOC: ED 01:34 → AC 03:45
PROVIDERS: Admitting Provider Nurse Practitioner Family; Emergency Provider Emergency Medicine; Referring Provider Emergency Medicine; Visit Provider Nurse Practitioner Family
DX: I11.0 Hypertensive heart disease with heart failure (principal); I50.21 Acute systolic (congestive) heart failure; I48.91 Unspecified atrial fibrillation; N31.9 Neuromuscular dysfunction of bladder, unspecified; Z20.822 Contact with and (suspected) exposure to COVID-19
CPT/HCPCS: 36415; 51702; 71045; 78452; 80048; 80053; 80061; 82533; 82550; 83036; 83690; 83735; 83880; 84443; 84484; 85025; 87635; 93005; 93017; 93306; 96374; 96375; 99284; C9803; A9502; J1940

== ENCOUNTER → 2021-05-14 15:08 | Outpatient (CLI) | payer MEDICARE, SELFPAY ==
[2021-05-09 02:46] VITALS: BMI 33.9
[2021-05-14 16:19] LABS: BUN Creatinine Ratio 17.2 (6-22); Blood Urea Nitrogen 22 mg/dL (9-20); Carbon Dioxide 31 mmol/L (22-32); Chloride 105 mmol/L (98-107); Estimated Glomerular Filt Rate 54.9 mL/min (>60); Glucose 94 mg/dL (80-110); HEMOLYSIS < 15 (0-50); Potassium 4.1 mmol/L (3.4-5.1); Sodium 141 mmol/L (137-145)
== END ==
PROVIDERS: Referring Provider Internal Medicine Cardiovascular Disease; Visit Provider Internal Medicine Cardiovascular Disease
DX: I10 Essential (primary) hypertension (principal)
CPT/HCPCS: 36415; 80048

== ENCOUNTER 2021-05-20 10:33 | Emergency (ER) | payer MEDICARE, SELFPAY ==
[2021-05-09 02:46] VITALS: BMI 33.9
[2021-05-20 10:57] VITALS: BP 129/97; PULSE 93; RESP 18; TEMP 35.9; O2SAT 97; BMI 33.9
[2021-05-20] MEDS: TET,DIPH,PERTUSS(ACELL),VAC/PF 0.5 ML SYRINGE IM (11:22)
[2021-05-20 12:56] VITALS: BP 155/108; PULSE 86; RESP 20; O2SAT 97
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
[2021-05-20 15:22] VITALS: BP 157/97; PULSE 88; O2SAT 97
== END 2021-05-20 15:22 | disposition home or self-care (01) ==
PROVIDERS: Emergency Provider Physician Assistant; PCP Student in an Organized Health Care Education/Training Program
DX: S61.317A Laceration without foreign body of left little finger with damage to nail, initial encounter (principal); W26.9XXA Contact with unspecified sharp object(s), initial encounter; Z23 Encounter for immunization
CPT/HCPCS: 90471; 99283; 90715

== ENCOUNTER → 2021-05-29 08:43 | Outpatient (CLI) | payer MEDICARE, SELFPAY ==
[2021-05-09 02:46] VITALS: BMI 33.9
[2021-05-29 10:02] LABS: HEMOLYSIS < 15 (0-50); Iron 54 ug/dL (49-181)
[2021-05-29 10:13] LABS: Percent Iron Saturation 21 % (20-50); Total Iron Binding Capacity 263 ug/dL (261-462); Transferrin 199 mg/dL (206-381)
[2021-05-29 10:35] LABS: Ferritin 57 ng/mL (18-464)
== END ==
PROVIDERS: PCP Student in an Organized Health Care Education/Training Program; Referring Provider Internal Medicine Cardiovascular Disease; Visit Provider Internal Medicine Cardiovascular Disease
DX: I50.20 Unspecified systolic (congestive) heart failure (principal); Z83.49 Family history of other endocrine, nutritional and metabolic diseases
CPT/HCPCS: 36415; 81256; 82728; 83540; 83550

== ENCOUNTER → 2022-09-02 13:37 | Outpatient (CLI) | payer MEDICARE, SELFPAY ==
[2021-05-09 02:46] VITALS: BMI 33.9
[2022-09-02 16:52] LABS: Prostate Specific Antigen 1.28 ng/mL (0.10-4.00)
== END ==
PROVIDERS: PCP Student in an Organized Health Care Education/Training Program; Referring Provider Specialist; Visit Provider Specialist
DX: R33.9 Retention of urine, unspecified (principal); N31.9 Neuromuscular dysfunction of bladder, unspecified
CPT/HCPCS: 36415; 84153

== ENCOUNTER 2023-12-06 18:14 | Emergency (ER) | payer MEDICARE, SELFPAY ==
[2021-05-09 02:46] VITALS: BMI 33.9
[2023-12-06] VITALS (11 sets, daily range): BP systolic 150–179; BP diastolic 74–100; PULSE 55–62; RESP 18; TEMP 36.4; O2SAT 93–98; BMI 33.9
[2023-12-06 19:20] LABS: Add Manual Diff / Slide Review NO; Basophils Absolute Auto 100 /uL (0-100); Eosinophils Absolute Auto 100 /uL (0-450); Hematocrit 45.4 % (41-53); Hemoglobin 15.4 g/dL (13.5-17.5); Lymphocytes Absolute Auto 1700 /uL (1100-4500); Lymphocytes Percent Auto 21.4 % (25-40); Mean Corpuscular HGB Conc 33.9 % (30-36); Mean Corpuscular Hemoglobin 30.5 PG (26-34); Mean Corpuscular Volume 89.9 fL (80-100); Monocytes Absolute Auto 700 /uL (0-900); Monocytes Percent Auto 9.2 % (3-14); Neutrophils Absolute Auto 5500 /uL (1500-7000); Neutrophils Percent Auto 67.4 % (50-75); Platelet Count 147 X10^3/uL (150-400); Red Blood Cell Count 5.05 X10^6/uL (4.5-5.9); Red Cell Distribution Width 14.6 % (11.6-14.8); White Blood Cell Count 8.1 X10^3/uL (4.5-11.0)
[2023-12-06 19:23] LABS: Appearance Urine UA CLEAR; Bilirubin Urine UA NEGATIVE (NEGATIVE); Color Urine UA YELLOW; Glucose Urine UA NEGATIVE (Negative); Ketones Urine UA NEGATIVE (NEGATIVE); Leukocyte Esterase Urine UA NEGATIVE (NEGATIVE); Nitrite Urine UA NEGATIVE (Negative); Occult Blood Urine UA NEGATIVE (Negative); Protein Urine UA NEGATIVE (Negative); Specific Gravity Urine UA >=1.030 (1.000-1.035); Urobilinogen Urine UA 0.2 E.U./dL (0.2)
[2023-12-06 19:33] LABS: Blood Urea Nitrogen 25 mg/dL (9-20); Carbon Dioxide 24 mmol/L (22-32); Chloride 111 mmol/L (98-107); Estimated Glomerular Filt Rate > 60 mL/min (>60); Glucose 101 mg/dL (80-110); HEMOLYSIS 17 (0-50); Potassium 4.1 mmol/L (3.4-5.1); Sodium 141 mmol/L (137-145)
--- NOTE | 2023-12-06 19:36 | PC.NURSE ---
Pt uses straight catheters daily about 4. The last time he had similar symptoms was about a year ago. So pt started to take his left over Cephalexin that he had previously about 2 days ago when symptoms started. Pt states no relief since starting those.
[2023-12-06 19:40] LABS: Bacteria Urine None Seen; Culture Indicated Urine Cult Not Indicated; Hyaline Casts Urine 0-1/LPF; RBC Urine None Seen (0-5/HPF); Squamous Epithelial Cell Urine 0-1 /HPF (0-5/HPF); Urine Volume 10mL (spun); WBC Urine 0-1/HPF (0-5/HPF)
--- NOTE | 2023-12-06 19:46 | DI.RAD.S_ITS ---
PROCEDURE: XR LUMBAR SPINE 2-3V INDICATIONS: lower back pain TECHNIQUE: Three views of the lumbar spine were acquired. COMPARISON: None. FINDINGS: Bones: Five [id number] vertebrae are present. Straightening of the normal lumbar lordosis with retrolisthesis L2-3, lateral subluxation and mild S scoliosis. Large bridging osteophytosis obscures good visualization of the lower lumbar vertebral body alignment. There is prominent facet arthropathy. Multilevel disc height loss and other endplate spurring.. No visible vertebral body compression fractures. No suspicious bony lesions. Soft tissues: Overlying bowel gas pattern is normal. No suspicious soft tissue calcifications. IMPRESSION: No visible acute fractures. Multilevel spondylosis and spondylolisthesis with prominent spurs, osteophytes, and facet arthropathy all appears chronic. Dictated by: Kayley Rangel M.D. on 12/06/2023 at 21:28 Approved by: Kayley Rangel M.D. on 12/06/2023 at 21:31
--- NOTE | 2023-12-06 19:46 | ED.GENADULT ---
HPI - General Adult General Chief complaint: Urogenital-Male Stated complaint: back pain Time Seen by Provider: 12/06/23 18:38 Source: patient Mode of arrival: Ambulatory History of Present Illness HPI narrative: Patient is a 78-year-old male. Has had longstanding issues with his bladder. He self caths on a regular basis. He is here for evaluation of left lower abdominal discomfort that has actually been present for the past several days or week or longer. No fevers. No vomiting. He was concerned that potentially he had a urinary tract infection or kidney infection. He states the pain is in his lower back. Today it is on the left side but it also sometimes happens on the right side. It does get worse when he bends over to put on his shoes. No specific trauma. Related Data Home Medications Medication Instructions Recorded Confirmed amlodipine 10 mg tablet 5 mg PO DAILY 08/04/22 11/16/23 apixaban 5 mg tablet (Eliquis) 5 mg PO BID 08/04/22 11/16/23 furosemide 20 mg tablet 20 mg PO DAILY PRN Edema 08/04/22 11/16/23 losartan 50 mg tablet 50 mg PO BEDTIME 08/04/22 11/16/23 metoprolol succinate 100 mg 50 mg PO BID 08/04/22 11/16/23 tablet,extended release 24 hr spironolactone 25 mg tablet 25 mg PO DAILY 08/04/22 11/16/23 Previous Rx's Medication Instructions Recorded cyclobenzaprine 10 mg tablet 10 mg PO TID PRN muscle spasm #14 12/06/23 tabs tramadol 50 mg tablet 50 mg PO Q8H PRN pain #10 tabs 12/06/23 Allergies Allergy/AdvReac Type Severity Reaction Status Date / Time No Known Drug Allergies Allergy Verified 09/08/22 13:20 Review of Systems Constitutional Constitutional: Reports system reviewed and no additional complaints, except as documented Genitourinary Genitourinary: Reports system reviewed and no additional complaints, except as documented Musculoskeletal Musculoskeletal: Reports system reviewed and no additional complaints, except as documented Integumentary/Breasts Skin/Breast: Reports system reviewed and no additional complaints, except as documented Patient History Medical History 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 COVID-19 virus infection (~05/2021) Osteoarthritis History of cardioversion (04/20/22) Self-catheterizes urinary bladder HFrEF (heart failure with reduced ejection fraction) Arrhythmia Chronic anticoagulation Traumatic rupture of bladder Neurogenic bladder Urinary retention Arthritis HTN (hypertension) Surgical History History of bladder surgery (~2008) Hx of transurethral resection of prostate H/O hernia repair (~2012) Family History Brother Diabetes mellitus Prostate CA Father Old age Mother CVA (cerebral vascular accident) Social History marital status: number of children: 9 household members: spouse and children Smoking Status: Never smoker alcohol intake: former Smoking Status: Never smoker alcohol intake frequency: 0-2 drinks per day Substance Use Type: marijuana Exam Initial Vital Signs Initial Vital Signs: Vital Signs Temperature 97.6 F 12/06/23 18:22 Pulse Rate 59 L 12/06/23 18:22 Respiratory Rate 18 12/06/23 18:22 Blood Pressure 179/100 H 12/06/23 18:22 Pulse Oximetry 98 12/06/23 18:22 Oxygen Delivery Method Room Air 12/06/23 18:22 HENMT Head: normal to inspection and normocephalic Resp Effort & Inspection: normal respiratory effort Cardio Rate: regular rate GI Inspection: normal to inspection and non-distended Back/Spine/Pelvis Back: No CVA tenderness Thoracic/Lumbar Spine: paraspinal tenderness, No thoracic spinal tenderness and No lumbar spinal tenderness Skin General: no rashes or lesions noted Neuro General: patient alert, patient awake, patient oriented x3 and moves all extremities Course Orders Ordered: ED Orders 12/06/23 19:09 Basic Metabolic Panel Stat Complete Blood Count AUTO DIFF Stat Urinalysis and Microscopic Stat 12/06/23 19:46 XR lumbar spine 2-3V Stat Discontinued Medications Cyclobenzaprine HCl (Cyclobenzaprine 10 Mg Prepack) 1 bottle MISC DIRECTED ONE Stop: 12/06/23 21:52 Last Admin: 12/06/23 21:56 Dose: 1 bottle Documented By: AB Tramadol HCl (Tramadol 50 Mg Prepack) 1 bottle MISC DIRECTED ONE Stop: 12/06/23 21:52 Last Admin: 12/06/23 21:56 Dose: 1 bottle Documented By: AB Vital Signs Vital signs: Vital Signs - 8 hr 12/06/23 18:22 12/06/23 19:16 12/06/23 19:30 Temperature 97.6 F Pulse Rate 59 L 57 L 60 Respiratory Rate 18 18 Blood Pressure 179/100 H Pulse Oximetry 98 95 93 Oxygen Delivery Method Room Air 12/06/23 20:12 12/06/23 20:13 12/06/23 20:13 Temperature Pulse Rate 62 61 Respiratory Rate Blood Pressure 150/74 H Pulse Oximetry 97 95 Oxygen Delivery Method Room Air Room Air 12/06/23 20:30 12/06/23 20:31 12/06/23 20:31 Temperature Pulse Rate 55 L 56 L Respiratory Rate Blood Pressure 175/93 H Pulse Oximetry 94 95 Oxygen Delivery Method Room Air 12/06/23 21:00 12/06/23 21:01 12/06/23 21:01 Temperature Pulse Rate 57 L 56 L Respiratory Rate Blood Pressure 161/88 H Pulse Oximetry 97 96 Oxygen Delivery Method 12/06/23 21:55 12/06/23 21:56 12/06/23 21:56 Temperature Pulse Rate 60 58 L Respiratory Rate Blood Pressure 170/85 H Pulse Oximetry 97 95 Oxygen Delivery Method Room Air Room Air Medical Decision Making Lab Data Lab results reviewed: Yes I reviewed the patient's lab results. 12/06/23 19:09 12/06/23 19:09 Labs: Lab Results 12/06/23 Range/Units 19:09 WBC 8.1 (4.5-11.0) X10^3/uL RBC 5.05 (4.5-5.9) X10^6/uL Hgb 15.4 (13.5-17.5) g/dL Hct 45.4 (41-53) % MCV 89.9 (80-100) fL MCH 30.5 (26-34) PG MCHC 33.9 (30-36) % RDW 14.6 (11.6-14.8) % Plt Count 147 L (150-400) X10^3/uL Neut % (Auto) 67.4 (50-75) % Lymph % (Auto) 21.4 L (25-40) % [place] % (Auto) 9.2 (3-14) % Eos % (Auto) 1.0 L (2-4) % Baso % (Auto) 1.0 (0-2) % Neut # (Auto) 5500 (1312-3393) /uL Lymph # (Auto) 1700 (6775-7077) /uL [place] # (Auto) 700 (0-900) /uL Eos # (Auto) 100 (0-450) /uL Baso # (Auto) 100 (0-100) /uL Sodium 141 (137-145) mmol/L Potassium 4.1 (3.4-5.1) mmol/L Chloride 111 H (98-107) mmol/L Carbon Dioxide 24 (22-32) mmol/L BUN 25 H (9-20) mg/dL Creatinine 1.00 (0.66-1.25) mg/dL Estimated GFR > 60 (>60) mL/min BUN/Creatinine Ratio 25.0 H (6-22) Glucose 101 (80-110) mg/dL Calcium 9.0 (8.4-10.2) mg/dL Urine Color Yellow Urine Appearance Clear Urine pH 5.0 (4.5-8.0) Ur Specific [place] >=1.030 H (1.000-1.035) Urine Protein Negative (Negative) Urine Glucose (UA) Negative (Negative) g/dL Urine Ketones Negative (NEGATIVE) Urine Occult Blood Negative (Negative) Urine Nitrate Negative (Negative) Urine Bilirubin Negative (NEGATIVE) Urine Urobilinogen 0.2 (0.2) E.U./dL Ur Leukocyte Esterase Negative (NEGATIVE) Urine RBC None seen (0-5/HPF) Urine WBC 0-1/hpf (0-5/HPF) Ur Squamous Epith Cells 0-1 /hpf (0-5/HPF) Urine Bacteria None seen (None) Hyaline Casts 0-1/lpf (None) Ur Culture Indicated? Cult not indicated Vol Urine Centrifuged 10ml (spun) Imaging Data lumbar x-ray: Radiologist's Impression: PROCEDURE: XR LUMBAR SPINE 2-3V INDICATIONS: lower back pain TECHNIQUE: Three views of the lumbar spine were acquired. COMPARISON: None. FINDINGS: Bones: Five [id number] vertebrae are present. Straightening of the normal lumbar lordosis with retrolisthesis L2-3, lateral subluxation and mild S scoliosis. Large bridging osteophytosis obscures good visualization of the lower lumbar vertebral body alignment. There is prominent facet arthropathy. Multilevel disc height loss and other endplate spurring.. No visible vertebral body compression fractures. No suspicious bony lesions. Soft tissues: Overlying bowel gas pattern is normal. No suspicious soft tissue calcifications. IMPRESSION: No visible acute fractures. Multilevel spondylosis and spondylolisthesis with prominent spurs, osteophytes, and facet arthropathy all appears chronic. MDM Narrative Medical decision making narrative: No acute changes on the x-ray. His urinalysis today is not consistent with a UTI. It was a urine culture pending at the time of discharge we will contact him if we need to start any antibiotics based on this however I have very high suspicion that this is muscular in origin. Will treat symptomatically. No indication for admission to the hospital. He was given return precautions. He expressed understanding and agreement. Discharge Plan Departure Patient Disposition: Home Clinical Impression: Lower back pain Instructions: DI for Low Back Pain Activity Restrictions/Additional Instructions: There is a urine culture pending at the time of your discharge and we will contact you if we need to start any antibiotics based on this. Use the medications you were given a prescription for today as needed. Return to the emergency department for new symptoms. Prescriptions: New cyclobenzaprine 10 mg tablet 10 mg PO TID PRN (Reason: muscle spasm) Qty: 14 0RF tramadol 50 mg tablet 50 mg PO Q8H PRN (Reason: pain) Qty: 10 0RF No Action losartan 50 mg Tablet 50 mg PO BEDTIME metoprolol succinate 100 mg Tablet Extended Release 24 Hr 50 mg PO BID spironolactone 25 mg Tablet 25 mg PO DAILY amlodipine 10 mg Tablet 5 mg PO DAILY furosemide 20 mg Tablet 20 mg PO DAILY PRN (Reason: Edema) Eliquis 5 mg Tablet 5 mg PO BID Referrals: Paola Jacobs DO [Primary Care Provider] - Stand Alone Forms: Patient Portal/API
[2023-12-06] MEDS: CYCLOBENZAPRINE 10 MG PREPACK 1 BOTTLE MISC (21:56)
[2023-12-06] MEDS: TRAMADOL 50 MG PREPACK 1 BOTTLE MISC (21:56)
== END 2023-12-06 21:58 | disposition home or self-care (01) ==
PROVIDERS: Emergency Provider Emergency Medicine; PCP Student in an Organized Health Care Education/Training Program
DX: M54.50 Low back pain, unspecified (principal); Z79.01 Long term (current) use of anticoagulants
CPT/HCPCS: 36415; 72100; 80048; 81001; 85025; 99283; 99284